=== PATIENT | female | born 1945 | race African-American/Black ===

== ENCOUNTER 2016-09-16 21:35 | Inpatient (IN) | payer MEDICARE ==
[~2016-09-16] VITALS: Ht 165.1 cm; Wt 129.7 kg
[~2016-09-16 21:35] MED LIST: ACET-2178 PO; ALBU2.5V13 INH; ALPR0.2582 PO; APIX2.5T PO; ASPI-1159 PO; AZIT500T5 PO; BENA20TA77 PO; CHOL20004 PO; CODE118S2 PO; CYAN10009 PO; DOXA8TAB2 PO; ESOM40CA PO; FLUT1DIS5 INH; FLUT1DIS6 IH; FURO-151 PO; HYDR-519 PO; HYDR-523 PO; LEVO75TA7 PO; MULT-1146 PO; NIFE60TA35 PO; TIOT18CA3 IH; TUSSL PO; WARF5TAB76 PO
[2016-09-16 22:06] VITALS: BP 132/58
[2016-09-16] MEDS ORDERED: CLONIDINE 0.1MG TABLET PO PRN (22:15)
[2016-09-16] MEDS ORDERED: MAGNESIUM HYDROXIDE 400MG/5ML 30ML UDC PO PRN (22:15)
[2016-09-16] MEDS ORDERED: NITROGLYCERIN 0.4MG TABLET SL SL PRN (22:15)
[2016-09-16] MEDS: SODIUM CHLORIDE 0.45% 1,000 ML IV SCH (23:07)
[2016-09-17 00:40] VITALS: BP 132/58
[2016-09-17] MEDS: ALPRAZOLAM 0.25 MG TABLET PO PRN ×2 (01:16→20:27)
[2016-09-17 06:18] LABS: CARBON DIOXIDE 35 mEq/L (21-32); CHLORIDE 100 mEq/L (98-107); PREALBUMIN 17.3 mg/dL (20.0-40.0)
[2016-09-17 06:21] LABS: HEMATOCRIT 33.1 % (36.0-48.0); HEMOGLOBIN 10.8 g/dL (12.0-16.0); MEAN CORPUSCULAR HEMOGLOBIN 23.2 pg (28.0-32.0); MEAN CORPUSCULAR VOLUME 70.7 fL (81.0-99.0); PLATELET 219 x1000/uL (130-400); RED BLOOD CELL COUNT 4.68 mill/uL (4.2-5.4); RED CELL DISTRIBUTION WIDTH 18.3 % (11.6-14.6)
[2016-09-17] MEDS: LEVOTHYROXINE SODIUM 75MCG TABLET PO SCH (06:54)
[2016-09-17] MEDS: PANTOPRAZOLE 40MG DR TABLET PO SCH (06:55)
[2016-09-17 08:00] VITALS: BP 170/84
[2016-09-17] MEDS: BENAZEPRIL 20MG TABLET PO SCH (08:31)
[2016-09-17] MEDS: NIFEDIPINE XL 60MG TAB PO SCH ×2 (08:32→17:11)
[2016-09-17] MEDS: FUROSEMIDE 40MG TABLET PO SCH ×2 (08:32→17:11)
[2016-09-17] MEDS: DOXAZOSIN MESYLATE 4MG TABLET PO SCH (08:32)
[2016-09-17] MEDS: ENOXAPARIN 40MG/0.4ML SYR SUBCUT SCH ×2 (08:33→20:26)
[2016-09-17] MEDS: LIDOCAINE 5% PATCH TOP SCH ×3 (08:34→14:53)
[2016-09-17] MEDS: SODIUM CHLORIDE 0.45% 1,000 ML IV SCH ×2 (08:36→18:40)
[2016-09-17] MEDS: DOCUSATE SODIUM 100MG CAPSULE PO SCH ×2 (08:37→17:00)
[2016-09-17] MEDS ORDERED: NIFEDIPINE XL 60MG TAB PO ONE (09:00)
[2016-09-17] MEDS: FLUTICASONE/VILANTEROL 200-25 BLST.W.DEV ORI SCH (10:03)
[2016-09-17] MEDS: UMECLIDINIUM BROMIDE 1 INH BLST.W.DEV IH SCH (10:03)
[2016-09-17] MEDS: HYDROCODONE/ACETAMINOPHEN 10/325MG TABLET PO PRN (13:39)
[2016-09-17 20:00] VITALS: BP 112/60
[2016-09-18] MEDS: HYDROCODONE/ACETAMINOPHEN 10/325MG TABLET PO PRN ×3 (01:06→17:51)
[2016-09-18] MEDS: SODIUM CHLORIDE 0.45% 1,000 ML IV SCH ×3 (03:22→20:54)
[2016-09-18] MEDS: LEVOTHYROXINE SODIUM 75MCG TABLET PO SCH (06:30)
[2016-09-18] MEDS: PANTOPRAZOLE 40MG DR TABLET PO SCH (06:30)
[2016-09-18 07:45] VITALS: BP 154/73
[2016-09-18] MEDS: DOCUSATE SODIUM 100MG CAPSULE PO SCH ×2 (09:00→16:47)
[2016-09-18] MEDS: BENAZEPRIL 20MG TABLET PO SCH (09:14)
[2016-09-18] MEDS: NIFEDIPINE XL 60MG TAB PO SCH ×2 (09:14→16:45)
[2016-09-18] MEDS: FUROSEMIDE 40MG TABLET PO SCH ×2 (09:15→16:45)
[2016-09-18] MEDS: ENOXAPARIN 40MG/0.4ML SYR SUBCUT SCH ×2 (09:16→20:54)
[2016-09-18] MEDS: DOXAZOSIN MESYLATE 4MG TABLET PO SCH (09:16)
[2016-09-18] MEDS: FLUTICASONE/VILANTEROL 200-25 BLST.W.DEV ORI SCH (09:17)
[2016-09-18] MEDS: UMECLIDINIUM BROMIDE 1 INH BLST.W.DEV IH SCH (09:17)
[2016-09-18] MEDS: LIDOCAINE 5% PATCH TOP SCH (09:18)
[2016-09-18] MEDS: ALPRAZOLAM 0.25 MG TABLET PO PRN (15:19)
[2016-09-18 18:32] LABS: CLARITY URINE CLEAR (CLEAR); COLOR URINE YELLOW (YELLOW); GLUCOSE URINE NEGATIVE (NEGATIVE); KETONES URINE NEGATIVE (NEGATIVE); LEUKOCYTE ESTERASE URINE NEGATIVE (NEGATIVE); NITRITE URINE NEGATIVE (NEGATIVE); OCCULT BLOOD URINE 2+ (NEGATIVE); PH URINE 7.5 (4.5-8.0); PROTEIN URINE NEGATIVE (NEGATIVE); SPECIFIC GRAVITY URINE 1.019 (1.005-1.030)
[2016-09-18 20:00] VITALS: BP 117/60
[2016-09-19] MEDS: ALPRAZOLAM 0.25 MG TABLET PO PRN ×2 (00:39→20:28)
[2016-09-19] MEDS: SODIUM CHLORIDE 0.45% 1,000 ML IV SCH (01:00)
[2016-09-19] MEDS: HYDROCODONE/ACETAMINOPHEN 10/325MG TABLET PO PRN ×3 (04:03→22:48)
[2016-09-19 05:38] LABS: BASOPHILS % 0.6 % (0.0-2.0); HEMATOCRIT. 33.1 % (36.0-48.0); HEMOGLOBIN. 11.2 g/dL (12.0-16.0); LYMPHOCYTES % 14.1 % (20.0-50.0); MEAN CORPUSCULAR HEMOGLOBIN 23.6 pg (28.0-32.0); MEAN CORPUSCULAR VOLUME 69.8 fL (81.0-99.0); MEAN PLATELET VOLUME 8.6 fl (7.4-10.4); MONOCYTES % 9.1 % (2.0-8.0); NEUTROPHILS % 72.2 % (40.0-76.0); PLATELET 231 x1000/uL (130-400); RED BLOOD CELL COUNT 4.74 mill/uL (4.2-5.4); RED CELL DISTRIBUTION WIDTH 18.5 % (11.6-14.6)
[2016-09-19 06:06] LABS: CARBON DIOXIDE 34 mEq/L (21-32); CHLORIDE 102 mEq/L (98-107); PHOSPHORUS 3.1 mg/dL (2.5-4.9); TOTAL IRON BINDING CAPACITY 230 ug/dL (250-450)
[2016-09-19] MEDS: LEVOTHYROXINE SODIUM 75MCG TABLET PO SCH (06:27)
[2016-09-19 07:24] LABS: CREATINE KINASE 9380 IU/L (26-192)
[2016-09-19 07:25] LABS: FERRITIN 77 ng/mL (10-291)
[2016-09-19 07:39] LABS: VITAMIN B12 SERUM > 2000 pg/mL (211-911)
[2016-09-19 08:00] VITALS: BP 137/67
[2016-09-19] MEDS: BENAZEPRIL 20MG TABLET PO SCH (10:54)
[2016-09-19] MEDS: FAMOTIDINE 20MG TABLET PO SCH ×2 (10:54→20:27)
[2016-09-19] MEDS: NIFEDIPINE XL 60MG TAB PO SCH ×2 (10:54→18:11)
[2016-09-19] MEDS: DOCUSATE SODIUM 100MG CAPSULE PO SCH ×2 (10:54→18:12)
[2016-09-19] MEDS: FUROSEMIDE 40MG TABLET PO SCH ×2 (10:54→18:12)
[2016-09-19] MEDS: FLUTICASONE/VILANTEROL 200-25 BLST.W.DEV ORI SCH (10:55)
[2016-09-19] MEDS: ENOXAPARIN 40MG/0.4ML SYR SUBCUT SCH ×2 (10:55→20:27)
[2016-09-19] MEDS: DOXAZOSIN MESYLATE 4MG TABLET PO SCH (10:55)
[2016-09-19] MEDS: UMECLIDINIUM BROMIDE 1 INH BLST.W.DEV IH SCH (10:56)
[2016-09-19] MEDS: LIDOCAINE 5% PATCH TOP SCH (10:57)
[2016-09-19 12:00] VITALS: BP 147/69
[2016-09-19 18:00] VITALS: BP 129/61
[2016-09-19] MEDS: FERROUS SULFATE 325MG TABLET PO SCH (18:11)
[2016-09-19 20:12] VITALS: BP 121/66
[2016-09-20] MEDS: LEVOTHYROXINE SODIUM 75MCG TABLET PO SCH (06:19)
[2016-09-20] MEDS: HYDROCODONE/ACETAMINOPHEN 10/325MG TABLET PO PRN ×3 (06:38→22:21)
[2016-09-20] MEDS: GUAIFENESIN 200MG/10ML SUGAR FREE UDC PO PRN (06:39)
[2016-09-20 08:00] VITALS: BP 136/70
[2016-09-20] MEDS: LIDOCAINE 5% PATCH TOP SCH ×2 (09:00→09:45)
[2016-09-20] MEDS: NIFEDIPINE XL 60MG TAB PO SCH ×2 (09:42→18:05)
[2016-09-20] MEDS: FUROSEMIDE 40MG TABLET PO SCH ×2 (09:42→18:05)
[2016-09-20] MEDS: DOCUSATE SODIUM 100MG CAPSULE PO SCH ×2 (09:42→17:00)
[2016-09-20] MEDS: FAMOTIDINE 20MG TABLET PO SCH ×2 (09:42→22:19)
[2016-09-20] MEDS: FERROUS SULFATE 325MG TABLET PO SCH ×3 (09:42→18:04)
[2016-09-20] MEDS: DOXAZOSIN MESYLATE 4MG TABLET PO SCH (09:43)
[2016-09-20] MEDS: ENOXAPARIN 40MG/0.4ML SYR SUBCUT SCH ×2 (09:43→22:21)
[2016-09-20] MEDS: BENAZEPRIL 20MG TABLET PO SCH (09:43)
[2016-09-20] MEDS: UMECLIDINIUM BROMIDE 1 INH BLST.W.DEV IH SCH (09:43)
[2016-09-20] MEDS: FLUTICASONE/VILANTEROL 200-25 BLST.W.DEV ORI SCH (09:44)
[2016-09-20 12:55] VITALS: BP 127/64
[2016-09-20 18:05] VITALS: BP 120/63
[2016-09-20 20:00] VITALS: BP 122/67
[2016-09-20] MEDS ORDERED: LIDOCAINE 5% PATCH TOP SCH (21:00)
[2016-09-21] MEDS: LEVOTHYROXINE SODIUM 75MCG TABLET PO SCH (06:03)
[2016-09-21 08:00] VITALS: BP 155/89
[2016-09-21 08:15] LABS: CREATINE KINASE 7427 IU/L (26-192)
[2016-09-21] MEDS: ENOXAPARIN 40MG/0.4ML SYR SUBCUT SCH ×2 (08:22→21:18)
[2016-09-21] MEDS: DOCUSATE SODIUM 100MG CAPSULE PO SCH ×2 (08:22→16:55)
[2016-09-21] MEDS: FAMOTIDINE 20MG TABLET PO SCH ×2 (08:23→21:16)
[2016-09-21] MEDS: FUROSEMIDE 40MG TABLET PO SCH ×2 (08:23→16:55)
[2016-09-21] MEDS: BENAZEPRIL 20MG TABLET PO SCH (08:23)
[2016-09-21] MEDS: NIFEDIPINE XL 60MG TAB PO SCH ×2 (08:23→16:55)
[2016-09-21] MEDS: FERROUS SULFATE 325MG TABLET PO SCH ×3 (08:23→16:55)
[2016-09-21] MEDS: DOXAZOSIN MESYLATE 4MG TABLET PO SCH (08:24)
[2016-09-21] MEDS: HYDROCODONE/ACETAMINOPHEN 10/325MG TABLET PO PRN ×2 (08:25→21:17)
[2016-09-21] MEDS: UMECLIDINIUM BROMIDE 1 INH BLST.W.DEV IH SCH (08:28)
[2016-09-21] MEDS: LIDOCAINE 5% PATCH TOP SCH (08:32)
[2016-09-21] MEDS: FLUTICASONE/VILANTEROL 200-25 BLST.W.DEV ORI SCH (08:32)
[2016-09-21] MEDS: ALPRAZOLAM 0.25 MG TABLET PO PRN (13:58)
[2016-09-21] MEDS ORDERED: ALPRAZOLAM 0.25 MG TABLET PO PRN (15:30)
[2016-09-21] MEDS ORDERED: HYDROCODONE/ACETAMINOPHEN 10/325MG TABLET PO PRN (15:30)
[2016-09-21] MEDS ORDERED: CLONIDINE 0.2MG TABLET PO PRN (16:45)
[2016-09-21] MEDS: GUAIFENESIN 200MG/10ML SUGAR FREE UDC PO PRN (18:16)
[2016-09-21 20:00] VITALS: BP 118/58
[2016-09-22] MEDS: ALPRAZOLAM 0.25 MG TABLET PO PRN ×3 (01:13→22:58)
[2016-09-22 06:02] LABS: BASOPHILS % 0.8 % (0.0-2.0); EOSINOPHILS % 5.4 % (0.0-5.0); HEMOGLOBIN. 11.2 g/dL (12.0-16.0); LYMPHOCYTES % 19.9 % (20.0-50.0); MEAN CORPUSCULAR HEMOGLOBIN 23.4 pg (28.0-32.0); MEAN PLATELET VOLUME 8.1 fl (7.4-10.4); MONOCYTES % 12.3 % (2.0-8.0); NEUTROPHILS % 61.6 % (40.0-76.0); PLATELET 237 x1000/uL (130-400); RED BLOOD CELL COUNT 4.79 mill/uL (4.2-5.4)
[2016-09-22] MEDS: LEVOTHYROXINE SODIUM 75MCG TABLET PO SCH (06:29)
[2016-09-22 06:35] LABS: CARBON DIOXIDE 33 mEq/L (21-32); CHLORIDE 106 mEq/L (98-107)
[2016-09-22 07:24] LABS: CREATINE KINASE 5686 IU/L (26-192)
[2016-09-22 08:00] VITALS: BP 145/73
[2016-09-22] MEDS: UMECLIDINIUM BROMIDE 1 INH BLST.W.DEV IH SCH (09:19)
[2016-09-22] MEDS: FLUTICASONE/VILANTEROL 200-25 BLST.W.DEV ORI SCH (09:19)
[2016-09-22] MEDS: DOCUSATE SODIUM 100MG CAPSULE PO SCH ×2 (09:35→16:32)
[2016-09-22] MEDS: DOXAZOSIN MESYLATE 4MG TABLET PO SCH (09:35)
[2016-09-22] MEDS: FERROUS SULFATE 325MG TABLET PO SCH ×3 (09:36→16:32)
[2016-09-22] MEDS: FUROSEMIDE 40MG TABLET PO SCH ×2 (09:36→16:32)
[2016-09-22] MEDS: BENAZEPRIL 20MG TABLET PO SCH (09:37)
[2016-09-22] MEDS: FAMOTIDINE 20MG TABLET PO SCH ×2 (09:37→20:41)
[2016-09-22] MEDS: NIFEDIPINE XL 60MG TAB PO SCH ×2 (09:38→16:45)
[2016-09-22] MEDS: ENOXAPARIN 40MG/0.4ML SYR SUBCUT SCH ×2 (09:39→20:41)
[2016-09-22] MEDS: LIDOCAINE 5% PATCH TOP SCH (09:40)
[2016-09-22] MEDS: GUAIFENESIN 200MG/10ML SUGAR FREE UDC PO PRN ×2 (12:15→21:07)
[2016-09-22] MEDS: HYDROCODONE/ACETAMINOPHEN 10/325MG TABLET PO PRN (14:56)
[2016-09-22 20:00] VITALS: BP 130/65
[2016-09-23] MEDS: GUAIFENESIN 200MG/10ML SUGAR FREE UDC PO PRN (04:25)
[2016-09-23] MEDS: HYDROCODONE/ACETAMINOPHEN 10/325MG TABLET PO PRN ×2 (04:36→15:06)
[2016-09-23] MEDS: LEVOTHYROXINE SODIUM 75MCG TABLET PO SCH (06:13)
[2016-09-23 07:46] LABS: CREATINE KINASE 4669 IU/L (26-192)
[2016-09-23 08:00] VITALS: BP 141/73
[2016-09-23] MEDS: UMECLIDINIUM BROMIDE 1 INH BLST.W.DEV IH SCH (08:16)
[2016-09-23] MEDS: ENOXAPARIN 40MG/0.4ML SYR SUBCUT SCH ×2 (08:17→20:35)
[2016-09-23] MEDS: FLUTICASONE/VILANTEROL 200-25 BLST.W.DEV ORI SCH (08:17)
[2016-09-23] MEDS: LIDOCAINE 5% PATCH TOP SCH (08:18)
[2016-09-23] MEDS: DOCUSATE SODIUM 100MG CAPSULE PO SCH ×2 (08:19→17:47)
[2016-09-23] MEDS: BENAZEPRIL 20MG TABLET PO SCH (08:19)
[2016-09-23] MEDS: FAMOTIDINE 20MG TABLET PO SCH ×2 (08:19→20:35)
[2016-09-23] MEDS: FUROSEMIDE 40MG TABLET PO SCH ×2 (08:19→17:47)
[2016-09-23] MEDS: FERROUS SULFATE 325MG TABLET PO SCH ×3 (08:19→17:47)
[2016-09-23] MEDS: NIFEDIPINE XL 60MG TAB PO SCH ×2 (08:19→17:47)
[2016-09-23] MEDS: DOXAZOSIN MESYLATE 4MG TABLET PO SCH (08:20)
[2016-09-23] MEDS: GUAIFENESIN-DM 200MG-20MG/10ML UDC PO PRN (15:06)
[2016-09-23 20:00] VITALS: BP 133/59
[2016-09-23] MEDS: ALPRAZOLAM 0.25 MG TABLET PO PRN (22:32)
[2016-09-24] MEDS: HYDROCODONE/ACETAMINOPHEN 10/325MG TABLET PO PRN ×2 (03:25→17:54)
[2016-09-24] MEDS: GUAIFENESIN 200MG/10ML SUGAR FREE UDC PO PRN (06:10)
[2016-09-24] MEDS: LEVOTHYROXINE SODIUM 75MCG TABLET PO SCH (06:10)
[2016-09-24 06:38] LABS: BASOPHILS % 0.4 % (0.0-2.0); EOSINOPHILS % 5.7 % (0.0-5.0); HEMATOCRIT. 34.5 % (36.0-48.0); HEMOGLOBIN. 11.4 g/dL (12.0-16.0); LYMPHOCYTES % 18.6 % (20.0-50.0); MEAN CORPUSCULAR HEMOGLOBIN 23.2 pg (28.0-32.0); MEAN CORPUSCULAR VOLUME 70.6 fL (81.0-99.0); MEAN PLATELET VOLUME 8.7 fl (7.4-10.4); MONOCYTES % 11.3 % (2.0-8.0); PLATELET 231 x1000/uL (130-400); RED BLOOD CELL COUNT 4.89 mill/uL (4.2-5.4); RED CELL DISTRIBUTION WIDTH 19.6 % (11.6-14.6)
[2016-09-24 08:03] VITALS: BP 123/64
[2016-09-24 08:09] LABS: CARBON DIOXIDE 36 mEq/L (21-32); CHLORIDE 103 mEq/L (98-107)
[2016-09-24 08:32] LABS: CREATINE KINASE 4442 IU/L (26-192)
[2016-09-24] MEDS: LIDOCAINE 5% PATCH TOP SCH ×2 (09:00→13:23)
[2016-09-24] MEDS: DOCUSATE SODIUM 100MG CAPSULE PO SCH ×2 (10:33→17:46)
[2016-09-24] MEDS: FAMOTIDINE 20MG TABLET PO SCH ×2 (10:33→20:16)
[2016-09-24] MEDS: BENAZEPRIL 20MG TABLET PO SCH (10:33)
[2016-09-24] MEDS: FERROUS SULFATE 325MG TABLET PO SCH ×3 (10:33→17:46)
[2016-09-24] MEDS: NIFEDIPINE XL 60MG TAB PO SCH ×2 (10:33→17:47)
[2016-09-24] MEDS: FUROSEMIDE 40MG TABLET PO SCH ×2 (10:33→17:47)
[2016-09-24] MEDS: DOXAZOSIN MESYLATE 4MG TABLET PO SCH (10:34)
[2016-09-24] MEDS: ENOXAPARIN 40MG/0.4ML SYR SUBCUT SCH ×2 (10:34→20:16)
[2016-09-24] MEDS: UMECLIDINIUM BROMIDE 1 INH BLST.W.DEV IH SCH (10:35)
[2016-09-24] MEDS: FLUTICASONE/VILANTEROL 200-25 BLST.W.DEV ORI SCH (10:35)
[2016-09-24 17:11] LABS: 25-HYDROXY VITAMIN D3 19 ng/mL (.)
[2016-09-24 17:35] VITALS: BP 129/64
[2016-09-24 20:22] VITALS: BP 122/63
[2016-09-25] MEDS: HYDROCODONE/ACETAMINOPHEN 10/325MG TABLET PO PRN ×2 (00:40→06:42)
[2016-09-25] MEDS: LEVOTHYROXINE SODIUM 75MCG TABLET PO SCH (06:12)
[2016-09-25 08:00] VITALS: BP 136/68
[2016-09-25] MEDS: FERROUS SULFATE 325MG TABLET PO SCH ×3 (10:42→17:31)
[2016-09-25] MEDS: FAMOTIDINE 20MG TABLET PO SCH ×2 (10:42→20:43)
[2016-09-25] MEDS: FUROSEMIDE 40MG TABLET PO SCH ×2 (10:42→17:32)
[2016-09-25] MEDS: DOCUSATE SODIUM 100MG CAPSULE PO SCH ×2 (10:42→17:31)
[2016-09-25] MEDS: BENAZEPRIL 20MG TABLET PO SCH (10:42)
[2016-09-25] MEDS: DOXAZOSIN MESYLATE 4MG TABLET PO SCH (10:43)
[2016-09-25] MEDS: NIFEDIPINE XL 60MG TAB PO SCH ×2 (10:43→17:32)
[2016-09-25] MEDS: ENOXAPARIN 40MG/0.4ML SYR SUBCUT SCH ×2 (10:44→20:43)
[2016-09-25] MEDS: UMECLIDINIUM BROMIDE 1 INH BLST.W.DEV IH SCH (10:50)
[2016-09-25] MEDS: FLUTICASONE/VILANTEROL 200-25 BLST.W.DEV ORI SCH (10:51)
[2016-09-25] MEDS: LIDOCAINE 5% PATCH TOP SCH (13:44)
[2016-09-25] MEDS: ALPRAZOLAM 0.25 MG TABLET PO PRN (17:36)
[2016-09-25 20:00] VITALS: BP 121/66
[2016-09-26] MEDS: LEVOTHYROXINE SODIUM 75MCG TABLET PO SCH (06:18)
[2016-09-26] MEDS: GUAIFENESIN-DM 200MG-20MG/10ML UDC PO PRN (06:41)
[2016-09-26 08:07] VITALS: BP 132/70
[2016-09-26] MEDS: FUROSEMIDE 40MG TABLET PO SCH (08:46)
[2016-09-26] MEDS: FERROUS SULFATE 325MG TABLET PO SCH ×2 (08:46→12:15)
[2016-09-26] MEDS: FAMOTIDINE 20MG TABLET PO SCH (08:46)
[2016-09-26] MEDS: BENAZEPRIL 20MG TABLET PO SCH (08:47)
[2016-09-26] MEDS: NIFEDIPINE XL 60MG TAB PO SCH (08:47)
[2016-09-26] MEDS: DOXAZOSIN MESYLATE 4MG TABLET PO SCH (08:48)
[2016-09-26] MEDS: UMECLIDINIUM BROMIDE 1 INH BLST.W.DEV IH SCH (08:48)
[2016-09-26] MEDS: FLUTICASONE/VILANTEROL 200-25 BLST.W.DEV ORI SCH (08:48)
[2016-09-26] MEDS: ENOXAPARIN 40MG/0.4ML SYR SUBCUT SCH (08:49)
[2016-09-26] MEDS: LIDOCAINE 5% PATCH TOP SCH (08:49)
[2016-09-26] MEDS: DOCUSATE SODIUM 100MG CAPSULE PO SCH (08:50)
[2016-09-26] MEDS: HYDROCODONE/ACETAMINOPHEN 10/325MG TABLET PO PRN (09:11)
[2016-09-26] MEDS: ALPRAZOLAM 0.25 MG TABLET PO PRN (12:15)
[2016-09-26 12:42] VITALS: BP 132/70
== END 2016-09-26 13:30 | disposition home health service (06) | DRG 545 ==
PROVIDERS: ADMIT Physical Medicine & Rehabilitation Spinal Cord Injury Medicine; ATTEND Internal Medicine Pulmonary Disease
DX: M33.20 Polymyositis, organ involvement unspecified (principal); I26.99 Other pulmonary embolism without acute cor pulmonale; K72.00 Acute and subacute hepatic failure without coma; Z68.42 Body mass index [BMI] 45.0-49.9, adult; I47.2 Ventricular tachycardia; I82.C12 Acute embolism and thrombosis of left internal jugular vein; D32.9 Benign neoplasm of meninges, unspecified; D50.9 Iron deficiency anemia, unspecified; D69.6 Thrombocytopenia, unspecified; E03.9 Hypothyroidism, unspecified; E11.9 Type 2 diabetes mellitus without complications; E66.01 Morbid (severe) obesity due to excess calories; E78.00 Pure hypercholesterolemia, unspecified; E78.5 Hyperlipidemia, unspecified; G47.33 Obstructive sleep apnea (adult) (pediatric); I10 Essential (primary) hypertension; I25.10 Atherosclerotic heart disease of native coronary artery without angina pectoris; I48.0 Paroxysmal atrial fibrillation; J42 Unspecified chronic bronchitis; J45.909 Unspecified asthma, uncomplicated; F06.31 Mood disorder due to known physiological condition with depressive features; K21.9 Gastro-esophageal reflux disease without esophagitis; K57.90 Diverticulosis of intestine, part unspecified, without perforation or abscess without bleeding; M06.9 Rheumatoid arthritis, unspecified; M19.90 Unspecified osteoarthritis, unspecified site; Z96.653 Presence of artificial knee joint, bilateral; R26.9 Unspecified abnormalities of gait and mobility; Z82.49 Family history of ischemic heart disease and other diseases of the circulatory system; Z85.42 Personal history of malignant neoplasm of other parts of uterus; Z86.711 Personal history of pulmonary embolism; Z86.718 Personal history of other venous thrombosis and embolism; Z92.21 Personal history of antineoplastic chemotherapy; Z95.1 Presence of aortocoronary bypass graft; Z90.710 Acquired absence of both cervix and uterus; I25.2 Old myocardial infarction
CPT/HCPCS: 36415; 80048; 80053; 80061; 80076; 81001; 82270; 82306; 82550; 82607; 82728; 82746; 83036; 83540; 83550; 83735; 84100; 84134; 84443; 84630; 85025; 85027; 87086; 93970; 94660; 97110; 97116; 97162; 97167; 97530; 97535; A6261; C1893; J1650

== ENCOUNTER → 2017-05-14 | Outpatient (CLI) | payer MEDICARE, BC ==
[~2017-05-14] MED LIST changes: -ALBU2.5V13 INH; +ALPR0.25 PO; -ALPR0.2582 PO; -AZIT500T5 PO; +BENA40TA3 PO; -CHOL20004 PO; +COD1CAPS7 PO; -CODE118S2 PO; -CYAN10009 PO; -ESOM40CA PO; +FAMO-135 PO; +FERR325T6 PO; +FURO80TA3 PO; -HYDR-523 PO; -TUSSL PO; +VITA1CAP11 PO; -WARF5TAB76 PO
== END | disposition home or self-care (01) ==
LOC: CT 13:24
PROVIDERS: ATTEND Internal Medicine Pulmonary Disease
DX: E04.9 Nontoxic goiter, unspecified (principal)
CPT/HCPCS: 71250

== ENCOUNTER 2017-05-17 06:42 | Inpatient (IN) | payer BC, MEDICARE ==
[~2017-05-17] VITALS: Ht 165.1 cm; Wt 131.1 kg
[~2017-05-17 06:42] MED LIST changes: -BENA40TA3 PO; -COD1CAPS7 PO; -FAMO-135 PO; -FERR325T6 PO; -FURO80TA3 PO; -VITA1CAP11 PO
[2017-05-17] MEDS ORDERED: NITROGLYCERIN OINT 1GM/INCH UDPKT TD STA (07:05)
[2017-05-17 07:58] LABS: EOSINOPHILS % 3.3 % (0.0-5.0); HEMATOCRIT. 34.9 % (36.0-48.0); HEMOGLOBIN. 11.3 g/dL (12.0-16.0); LYMPHOCYTES % 14.4 % (20.0-50.0); MEAN CORPUSCULAR HEMOGLOBIN 23.7 pg (28.0-32.0); MEAN CORPUSCULAR VOLUME 72.8 fL (81.0-99.0); MEAN PLATELET VOLUME 8.8 fl (7.4-10.4); MONOCYTES % 9.5 % (2.0-8.0); NEUTROPHILS % 71.8 % (40.0-76.0); PLATELET 205 x1000/uL (130-400); RED BLOOD CELL COUNT 4.79 mill/uL (4.2-5.4); RED CELL DISTRIBUTION WIDTH 18.7 % (11.6-14.6)
[2017-05-17 08:01] LABS: CHLORIDE 111 mEq/L (98-107); D-DIMER 0.57 mg/L FEU (<0.50); PROTHROMBIN TIME 10.7 sec (9.4-11.6)
[2017-05-17 09:07] LABS: TROPONIN I < 0.02 ng/mL (0.00-0.04)
[2017-05-17] MEDS ORDERED: IOHEXOL-350 100 ML BOTTLE ONE (09:30)
[2017-05-17] MEDS: HYDROCODONE/ACETAMINOPHEN 5/325MG TABLET PO PRN (13:25)
[2017-05-17] MEDS ORDERED: ACETAMINOPHEN 325MG TABLET PO PRN (17:45)
[2017-05-17] MEDS ORDERED: HYDROCODONE/ACETAMINOPHEN 10/325MG TABLET PO PRN (17:45)
[2017-05-17] MEDS ORDERED: ALBUTEROL (0.083%) 2.5MG/3ML NEB HHN PRN (17:45)
[2017-05-17] MEDS ORDERED: ALPRAZOLAM 0.25 MG TABLET PO PRN (17:45)
[2017-05-17 18:00] VITALS: BP 138/60
[2017-05-17] MEDS ORDERED: LEVOTHYROXINE SODIUM 75MCG TABLET PO NR (18:15)
[2017-05-17] MEDS ORDERED: VITA1CAP11 PO (18:31)
[2017-05-17] MEDS ORDERED: FERR325T6 PO (18:31)
[2017-05-17] MEDS ORDERED: FAMO-135 PO (18:31)
[2017-05-17] MEDS ORDERED: BENA40TA3 PO (18:31)
[2017-05-17] MEDS ORDERED: COD1CAPS7 PO (18:31)
[2017-05-17] MEDS ORDERED: FURO80TA3 PO (18:31)
[2017-05-17] MEDS: NIFEDIPINE XL 60MG TAB PO SCH (18:36)
[2017-05-17] MEDS: BENAZEPRIL 20MG TABLET PO SCH (18:37)
[2017-05-17] MEDS: FUROSEMIDE 80MG TABLET PO SCH (18:37)
[2017-05-17 18:47] LABS: T4 FREE 1.09 ng/dL (0.76-1.46)
[2017-05-17] MEDS ORDERED: FLUTICASONE/VILANTEROL 200-25 BLST.W.DEV ORI SCH (20:00)
[2017-05-17] MEDS ORDERED: UMECLIDINIUM BROMIDE 1 INH BLST.W.DEV IH SCH (20:00)
[2017-05-17 20:05] VITALS: BP 136/65
[2017-05-17] MEDS: FAMOTIDINE 20MG TABLET PO SCH (20:27)
[2017-05-17] MEDS: ENOXAPARIN 30MG/0.3ML SYR SUBCUT SCH (20:29)
[2017-05-17 20:43] VITALS: BP 136/65
[2017-05-18] VITALS (7 sets, daily range): BP systolic 98–157; BP diastolic 53–87
[2017-05-18 01:09] LABS: CREATINE KINASE 93 IU/L (26-192); CREATINE KINASE MB FRACTION 0.7 ng/mL (0.5-3.6); TROPONIN I < 0.02 ng/mL (0.00-0.04)
[2017-05-18] MEDS: FUROSEMIDE 80MG TABLET PO SCH ×2 (06:36→16:53)
[2017-05-18] MEDS: FERROUS SULFATE 325MG TABLET PO SCH ×3 (07:34→16:53)
[2017-05-18 07:53] LABS: CREATINE KINASE MB FRACTION 0.6 ng/mL (0.5-3.6); TROPONIN I 0.04 ng/mL (0.00-0.04)
[2017-05-18] MEDS: NIFEDIPINE XL 60MG TAB PO SCH ×2 (08:20→16:53)
[2017-05-18] MEDS: FAMOTIDINE 20MG TABLET PO SCH (08:20)
[2017-05-18] MEDS: BENAZEPRIL 20MG TABLET PO SCH (08:20)
[2017-05-18] MEDS: ENOXAPARIN 30MG/0.3ML SYR SUBCUT SCH (08:38)
[2017-05-18] MEDS ORDERED: LIDOCAINE HCL/PF 1% 10 MG/ML 5ML VIAL ONE (13:09)
[2017-05-18] MEDS ORDERED: REGADENOSON 0.4 MG/5 ML IV NR (14:00)
[2017-05-18] MEDS ORDERED: REGADENOSON 0.4 MG/5 ML IV ONE (14:38)
[2017-05-18] MEDS: HYDROCODONE/ACETAMINOPHEN 5/325MG TABLET PO PRN (16:54)
== END 2017-05-18 21:20 | disposition home or self-care (01) | DRG 880 ==
LOC: ER 06:52 → 6WST 09:52 → EDBEDREQ 09:54 → ENRESERV 14:27
PROVIDERS: ADMIT Internal Medicine Pulmonary Disease; ATTEND Internal Medicine Pulmonary Disease
PROC: 02HV33Z Insertion of Infusion Device into Superior Vena Cava, Percutaneous Approach (ICD-10-PCS; principal; 2017-05-18)
PROC: B5181ZA Fluoroscopy of Superior Vena Cava using Low Osmolar Contrast, Guidance (ICD-10-PCS; 2017-05-18)
DX: F41.9 Anxiety disorder, unspecified (principal); I27.20 Pulmonary hypertension, unspecified; I11.0 Hypertensive heart disease with heart failure; I50.9 Heart failure, unspecified; I69.351 Hemiplegia and hemiparesis following cerebral infarction affecting right dominant side; Z68.42 Body mass index [BMI] 45.0-49.9, adult; E03.9 Hypothyroidism, unspecified; E66.9 Obesity, unspecified; E78.5 Hyperlipidemia, unspecified; J44.9 Chronic obstructive pulmonary disease, unspecified; K21.9 Gastro-esophageal reflux disease without esophagitis; M19.90 Unspecified osteoarthritis, unspecified site; Z96.653 Presence of artificial knee joint, bilateral; G47.33 Obstructive sleep apnea (adult) (pediatric); N63.10 Unspecified lump in the right breast, unspecified quadrant; Z82.49 Family history of ischemic heart disease and other diseases of the circulatory system; Z85.42 Personal history of malignant neoplasm of other parts of uterus; Z90.710 Acquired absence of both cervix and uterus; Z79.899 Other long term (current) drug therapy; Z79.82 Long term (current) use of aspirin; Z88.6 Allergy status to analgesic agent
CPT/HCPCS: 36415; 36569; 71045; 71250; 71275; 76937; 77001; 78452; 80053; 82550; 82553; 83690; 83880; 84439; 84481; 84484; 85025; 85379; 85610; 85730; 93005; 93017; 93970; 94640; 99285; A9500; C1725; C1769; J1650; J2785; J3490; J7050; Q9967

== ENCOUNTER → 2017-05-25 | Outpatient (CLI) | payer MEDICARE ==
[~2017-05-25] MED LIST changes: -BENA20TA77 PO; +BENA40TA3 PO; +COD1CAPS7 PO; +FAMO-135 PO; +FERR325T6 PO; -FURO-151 PO; +FURO80TA3 PO; +VITA1CAP11 PO
== END | disposition home or self-care (01) ==
LOC: MAMMO 09:48
PROVIDERS: ATTEND Surgery
DX: R92.1 Mammographic calcification found on diagnostic imaging of breast (principal)
CPT/HCPCS: 77065

== ENCOUNTER 2017-07-23 17:52 | Inpatient (IN) | payer MEDICARE ==
[~2017-07-23] VITALS: Ht 165.1 cm; Wt 138.8 kg
[2017-07-23 19:14] LABS: BASOPHILS % 0.8 % (0.0-2.0); EOSINOPHILS % 2.3 % (0.0-5.0); HEMATOCRIT. 37.3 % (36.0-48.0); HEMOGLOBIN. 12.3 g/dL (12.0-16.0); LYMPHOCYTES % 16.5 % (20.0-50.0); MEAN CORPUSCULAR HEMOGLOBIN 24.3 pg (28.0-32.0); MEAN CORPUSCULAR VOLUME 73.8 fL (81.0-99.0); MEAN PLATELET VOLUME 8.6 fl (7.4-10.4); MONOCYTES % 8.6 % (2.0-8.0); NEUTROPHILS % 71.8 % (40.0-76.0); PLATELET 197 x1000/uL (130-400); RED BLOOD CELL COUNT 5.05 mill/uL (4.2-5.4); RED CELL DISTRIBUTION WIDTH 18.1 % (11.6-14.6)
[2017-07-23 19:15] LABS: CHLORIDE 108 mEq/L (98-107)
[2017-07-23 19:16] LABS: PROTHROMBIN TIME 10.5 sec (9.4-11.6)
[2017-07-23] MEDS ORDERED: HEPARIN 25,000 UNITS PREMIX 500 ML IV ONE (22:00)
[2017-07-23] MEDS ORDERED: HEPARIN 5000 UNITS/ML VIAL IV ONE (22:00)
[2017-07-23 23:45] VITALS: BP 167/68
[2017-07-24] VITALS: BP 167/68
[2017-07-24] MEDS ORDERED: ALPRAZOLAM 0.25 MG TABLET PO PRN (02:00)
[2017-07-24] MEDS ORDERED: ALBUTEROL (0.083%) 2.5MG/3ML NEB HHN PRN (02:30)
[2017-07-24] MEDS ORDERED: GUAIFENESIN-DM 200MG-20MG/10ML UDC PO PRN (02:45)
[2017-07-24 04:15] VITALS: BP 135/56
[2017-07-24] MEDS: FUROSEMIDE 80MG TABLET PO SCH ×2 (06:23→18:36)
[2017-07-24] MEDS: LEVOTHYROXINE SODIUM 75MCG TABLET PO SCH (06:23)
[2017-07-24] MEDS: ENOXAPARIN 150MG/ML SYR SUBCUT SCH ×2 (06:23→18:39)
[2017-07-24] MEDS: HYDROCODONE/ACETAMINOPHEN 10/325MG TABLET PO PRN ×3 (06:30→21:06)
[2017-07-24 08:00] VITALS: BP 155/73
[2017-07-24] MEDS: BENAZEPRIL 20MG TABLET PO SCH (10:56)
[2017-07-24] MEDS: FAMOTIDINE 20MG TABLET PO SCH ×2 (10:57→20:44)
[2017-07-24] MEDS: NIFEDIPINE XL 60MG TAB PO SCH ×2 (10:57→20:44)
[2017-07-24] MEDS: FERROUS SULFATE 325MG TABLET PO SCH ×3 (11:00→18:39)
[2017-07-24 12:00] VITALS: BP 158/72
[2017-07-24] MEDS: FLUTICASONE/VILANTEROL 200-25 BLST.W.DEV ORI SCH (13:06)
[2017-07-24] MEDS: UMECLIDINIUM BROMIDE 1 INH BLST.W.DEV IH SCH (15:56)
[2017-07-24 16:00] VITALS: BP 162/67
[2017-07-24 20:36] VITALS: BP 148/68
[2017-07-24] MEDS: DOXAZOSIN MESYLATE 4MG TABLET PO SCH (20:44)
[2017-07-25 00:51] VITALS: BP 155/65
[2017-07-25 04:00] VITALS: BP 129/54
[2017-07-25] MEDS: FUROSEMIDE 80MG TABLET PO SCH ×2 (06:24→17:12)
[2017-07-25] MEDS: LEVOTHYROXINE SODIUM 75MCG TABLET PO SCH (06:24)
[2017-07-25] MEDS: ENOXAPARIN 150MG/ML SYR SUBCUT SCH ×2 (06:25→17:12)
[2017-07-25 07:42] LABS: BASOPHILS % 0.6 % (0.0-2.0); EOSINOPHILS % 3.2 % (0.0-5.0); HEMATOCRIT. 34.4 % (36.0-48.0); HEMOGLOBIN. 11.4 g/dL (12.0-16.0); LYMPHOCYTES % 20.1 % (20.0-50.0); MEAN CORPUSCULAR HEMOGLOBIN 24.3 pg (28.0-32.0); MEAN CORPUSCULAR VOLUME 73.1 fL (81.0-99.0); MEAN PLATELET VOLUME 8.7 fl (7.4-10.4); MONOCYTES % 11.5 % (2.0-8.0); NEUTROPHILS % 64.6 % (40.0-76.0); PLATELET 193 x1000/uL (130-400); RED BLOOD CELL COUNT 4.71 mill/uL (4.2-5.4); RED CELL DISTRIBUTION WIDTH 17.7 % (11.6-14.6)
[2017-07-25 07:59] LABS: CHLORIDE 107 mEq/L (98-107)
[2017-07-25 08:03] VITALS: BP 124/56
[2017-07-25] MEDS: FERROUS SULFATE 325MG TABLET PO SCH ×3 (08:37→17:12)
[2017-07-25] MEDS: FAMOTIDINE 20MG TABLET PO SCH ×2 (08:40→21:40)
[2017-07-25] MEDS: BENAZEPRIL 20MG TABLET PO SCH (08:40)
[2017-07-25] MEDS: NIFEDIPINE XL 60MG TAB PO SCH ×2 (08:40→21:41)
[2017-07-25] MEDS: HYDROCODONE/ACETAMINOPHEN 10/325MG TABLET PO PRN ×2 (08:42→21:40)
[2017-07-25] MEDS: FLUTICASONE/VILANTEROL 200-25 BLST.W.DEV ORI SCH (08:46)
[2017-07-25 11:25] VITALS: BP 120/59
[2017-07-25] MEDS: UMECLIDINIUM BROMIDE 1 INH BLST.W.DEV IH SCH (12:35)
[2017-07-25 16:07] VITALS: BP 138/61
[2017-07-25 20:00] VITALS: BP 135/63
[2017-07-25] MEDS: DOXAZOSIN MESYLATE 4MG TABLET PO SCH (21:40)
[2017-07-26] VITALS: BP 127/52
[2017-07-26 04:00] VITALS: BP 130/59
[2017-07-26] MEDS: FUROSEMIDE 80MG TABLET PO SCH (06:17)
[2017-07-26] MEDS: HYDROCODONE/ACETAMINOPHEN 10/325MG TABLET PO PRN ×2 (06:17→11:47)
[2017-07-26] MEDS: ENOXAPARIN 150MG/ML SYR SUBCUT SCH (06:20)
[2017-07-26 08:01] VITALS: BP 127/72
[2017-07-26] MEDS: FERROUS SULFATE 325MG TABLET PO SCH ×2 (10:34→12:48)
[2017-07-26] MEDS: NIFEDIPINE XL 60MG TAB PO SCH (10:35)
[2017-07-26] MEDS: BENAZEPRIL 20MG TABLET PO SCH (10:36)
[2017-07-26] MEDS: FAMOTIDINE 20MG TABLET PO SCH (10:36)
[2017-07-26] MEDS: LEVOTHYROXINE SODIUM 75MCG TABLET PO SCH (10:37)
[2017-07-26] MEDS: FLUTICASONE/VILANTEROL 200-25 BLST.W.DEV ORI SCH (10:38)
[2017-07-26 12:00] VITALS: BP 120/70
[2017-07-26 14:08] VITALS: BP 125/80
== END 2017-07-26 15:51 | disposition home or self-care (01) | DRG 300 ==
LOC: ER 19:09 → 6WST 21:53 → ENRESERV 22:15 → 6WST 23:40
PROVIDERS: ADMIT Internal Medicine Pulmonary Disease; ATTEND Internal Medicine Pulmonary Disease
DX: I82.622 Acute embolism and thrombosis of deep veins of left upper extremity (principal); D68.59 Other primary thrombophilia; I27.20 Pulmonary hypertension, unspecified; E66.01 Morbid (severe) obesity due to excess calories; Z68.43 Body mass index [BMI] 50.0-59.9, adult; J44.9 Chronic obstructive pulmonary disease, unspecified; I82.B12 Acute embolism and thrombosis of left subclavian vein; I82.619 Acute embolism and thrombosis of superficial veins of unspecified upper extremity; G47.30 Sleep apnea, unspecified; E03.9 Hypothyroidism, unspecified; E78.5 Hyperlipidemia, unspecified; I10 Essential (primary) hypertension; F32.9 Major depressive disorder, single episode, unspecified; F41.9 Anxiety disorder, unspecified; G89.29 Other chronic pain; M54.5 Low back pain; J30.1 Allergic rhinitis due to pollen; Z96.653 Presence of artificial knee joint, bilateral; I25.10 Atherosclerotic heart disease of native coronary artery without angina pectoris; K21.9 Gastro-esophageal reflux disease without esophagitis; M19.90 Unspecified osteoarthritis, unspecified site; Z79.01 Long term (current) use of anticoagulants; Z85.42 Personal history of malignant neoplasm of other parts of uterus; Z86.711 Personal history of pulmonary embolism; Z90.710 Acquired absence of both cervix and uterus; Z88.8 Allergy status to other drugs, medicaments and biological substances; Z79.82 Long term (current) use of aspirin; Z79.899 Other long term (current) drug therapy; Z90.721 Acquired absence of ovaries, unilateral
CPT/HCPCS: 36415; 71045; 78582; 80048; 80053; 83690; 84484; 85025; 85610; 85730; 93005; 93971; A9558; J1644; J1650

== ENCOUNTER 2017-08-31 12:42 | Emergency (ER) | payer MEDICARE ==
[~2017-08-31] VITALS: Ht 167.6 cm; Wt 130.0 kg
[~2017-08-31 12:42] MED LIST changes: -APIX2.5T PO; +APIX5TAB PO
[2017-08-31] MEDS ORDERED: SODIUM CHLORIDE 0.9% 1,000 ML IV ONE (13:06)
[2017-08-31 14:35] LABS: BASOPHILS % 0.7 % (0.0-2.0); EOSINOPHILS % 0.5 % (0.0-5.0); HEMATOCRIT. 36.9 % (36.0-48.0); HEMOGLOBIN. 12.4 g/dL (12.0-16.0); LYMPHOCYTES % 13.7 % (20.0-50.0); MEAN CORPUSCULAR HEMOGLOBIN 24.8 pg (28.0-32.0); MEAN CORPUSCULAR VOLUME 74.1 fL (81.0-99.0); MEAN PLATELET VOLUME 8.5 fl (7.4-10.4); MONOCYTES % 8.9 % (2.0-8.0); NEUTROPHILS % 76.2 % (40.0-76.0); PLATELET 220 x1000/uL (130-400); RED BLOOD CELL COUNT 4.99 mill/uL (4.2-5.4); RED CELL DISTRIBUTION WIDTH 17.2 % (11.6-14.6)
[2017-08-31 14:41] LABS: CHLORIDE 105 mEq/L (98-107)
[2017-08-31 14:43] LABS: INR 1.2
[2017-08-31 16:13] VITALS: BP 91/53
[2017-08-31] MEDS ORDERED: POTASSIUM CHLORIDE 20MEQ TABLET SR PO ONE (16:30)
== END 2017-08-31 16:43 | disposition home or self-care (01) ==
LOC: ER 13:14 → CANBEDREQ 17:48
DX: E87.6 Hypokalemia (principal); N28.9 Disorder of kidney and ureter, unspecified; R55 Syncope and collapse; J45.909 Unspecified asthma, uncomplicated; I10 Essential (primary) hypertension; Z86.73 Personal history of transient ischemic attack (TIA), and cerebral infarction without residual deficits; Z88.5 Allergy status to narcotic agent
CPT/HCPCS: 36415; 70450; 71045; 80053; 85025; 85610; 93005; 96360; 99285; J7030

== ENCOUNTER 2018-04-02 12:25 | Inpatient (IN) | payer MEDICARE ==
[~2018-04-02] VITALS: Ht 165.1 cm; Wt 147.4 kg
[~2018-04-02 12:25] MED LIST changes: -BENA40TA3 PO; +BENA40TA9 PO
[2018-04-02] MEDS ORDERED: ALBUTEROL (0.083%) 2.5MG/3ML NEB HHN STA (12:42)
[2018-04-02] MEDS ORDERED: METHYLPREDNISOLONE SOD SUCC 125 MG/2 ML VIAL IV STA (12:42)
[2018-04-02] MEDS ORDERED: IPRATROPIUM BROMIDE (0.02%) 0.5MG/2.5ML NEB HHN STA (12:42)
[2018-04-02] MEDS ORDERED: FUROSEMIDE 40MG/4ML VIAL IVP ONE (12:45)
[2018-04-02 13:31] LABS: BASOPHILS % 0.6 % (0.0-2.0); EOSINOPHILS % 9.2 % (0.0-5.0); HEMATOCRIT. 34.2 % (36.0-48.0); LYMPHOCYTES % 8.1 % (20.0-50.0); MEAN CORPUSCULAR HEMOGLOBIN 24.1 pg (28.0-32.0); MEAN CORPUSCULAR VOLUME 74.6 fL (81.0-99.0); MEAN PLATELET VOLUME 8.6 fl (7.4-10.4); MONOCYTES % 10.1 % (2.0-8.0); PLATELET 204 x1000/uL (130-400); RED BLOOD CELL COUNT 4.58 mill/uL (4.2-5.4); RED CELL DISTRIBUTION WIDTH 19.6 % (11.6-14.6)
[2018-04-02 13:39] LABS: INR 1.1; PROTHROMBIN TIME 10.7 sec (9.1-11.1)
[2018-04-02 13:42] LABS: CHLORIDE 109 mEq/L (98-107)
[2018-04-02 14:14] LABS: HEPATITIS B SURFACE ANTIGEN NEGATIVE
[2018-04-02 14:42] LABS: HEPATITIS A AB IGM NEGATIVE (NEGATIVE)
[2018-04-02 15:15] LABS: CLARITY URINE CLEAR (CLEAR); COLOR URINE YELLOW (YELLOW); KETONES URINE NEGATIVE (NEGATIVE); LEUKOCYTE ESTERASE URINE NEGATIVE (NEGATIVE); NITRITE URINE NEGATIVE (NEGATIVE); OCCULT BLOOD URINE 2+ (NEGATIVE); PH URINE 7.5 (4.5-8.0); PROTEIN URINE NEGATIVE (NEGATIVE); SPECIFIC GRAVITY URINE 1.006 (1.005-1.030); UROBILINOGEN URINE 0.2 E.U./dL (0.2-1.0)
[2018-04-02 16:22] LABS: *AMPHETAMINES SCREEN URINE NEGATIVE (NEGATIVE); *BARBITURATES SCREEN URINE NEGATIVE (NEGATIVE); *BENZODIAZEPINES SCREEN URINE NEGATIVE (NEGATIVE); *COCAINE SCREEN URINE NEGATIVE (NEGATIVE); CANNABINOID URINE SCREEN NEGATIVE (NEGATIVE); PHENCYCLIDINE URINE SCREEN NEGATIVE (NEGATIVE)
[2018-04-02 16:23] LABS: METHADONE URINE SCREEN NEGATIVE (NEGATIVE); OPIATES URINE SCREEN NEGATIVE (NEGATIVE)
[2018-04-02 16:58] VITALS: BP 170/80
[2018-04-02 17:01] VITALS: BP 170/80
[2018-04-02] MEDS ORDERED: FURO-151 MT (17:28)
[2018-04-02] MEDS ORDERED: IPRATROPIUM/ALBUTEROL 0.5-3(2.5)MG/3ML NEB HHN PRN (18:15)
[2018-04-02] MEDS ORDERED: ALPRAZOLAM 0.25 MG TABLET PO PRN (18:15)
[2018-04-02 19:06] LABS: BG BASE EXCESS 4.9 mmol/L (-2.0-2.0); BG CARBOXYHEMOGLOBIN 0.5 % (0.5-1.5); BG DEOXYHEMOGLOBIN 5.2 % (0.0-5.0); BG FRACTION INSPIRED OXYGEN 21; BG HCO3 ACT 29.6 mmol/L (22.0-26.0); BG METHEMOGLOBIN 0.3 % (0.0-1.5); BG OXYGEN SATURATION 94.8 % (92.0-98.5); BG PCO2 44.1 mmHg (35.0-45.0); BG PH 7.445 (7.350-7.450); BG PO2 72.8 mmHg (75.0-100.0); BG SAMPLE SITE RIGHT RADIAL; BG TOTAL HEMOGLOBIN 11.9 g/dL (12.0-18.0); BG VENT MODE ROOM AIR
[2018-04-02 19:58] VITALS: BP 150/71
[2018-04-02] MEDS: BENAZEPRIL 10MG TABLET PO SCH (21:00)
[2018-04-02] MEDS: APIXABAN 5 MG TABLET PO SCH (21:00)
[2018-04-02] MEDS ORDERED: PNEUMOCOCCAL 23-VAL P-SAC VAC 0.5 ML IM ONE (21:00)
[2018-04-02] MEDS: DOXAZOSIN MESYLATE 4MG TABLET PO SCH (21:51)
[2018-04-03] MEDS ORDERED: ALBUTEROL (0.083%) 2.5MG/3ML NEB HHN SCH
[2018-04-03] MEDS ORDERED: ALBUTEROL (0.083%) 2.5MG/3ML NEB HHN PRN
[2018-04-03] MEDS ORDERED: IPRATROPIUM BROMIDE (0.02%) 0.5MG/2.5ML NEB HHN SCH
[2018-04-03] MEDS ORDERED: BUDESONIDE 0.5MG/2ML NEB HHN SCH
[2018-04-03 00:32] VITALS: BP 155/72
[2018-04-03 04:47] VITALS: BP 153/71
[2018-04-03] MEDS: LEVOTHYROXINE SODIUM 75MCG TABLET PO SCH (06:22)
[2018-04-03 06:56] LABS: BASOPHILS % 0.6 % (0.0-2.0); EOSINOPHILS % 0.6 % (0.0-5.0); HEMATOCRIT. 36.2 % (36.0-48.0); HEMOGLOBIN. 11.7 g/dL (12.0-16.0); LYMPHOCYTES % 11.5 % (20.0-50.0); MEAN CORPUSCULAR HEMOGLOBIN 24.2 pg (28.0-32.0); MEAN CORPUSCULAR VOLUME 74.5 fL (81.0-99.0); MEAN PLATELET VOLUME 8.3 fl (7.4-10.4); MONOCYTES % 7.1 % (2.0-8.0); NEUTROPHILS % 80.2 % (40.0-76.0); PLATELET 239 x1000/uL (130-400); RED BLOOD CELL COUNT 4.86 mill/uL (4.2-5.4); RED CELL DISTRIBUTION WIDTH 19.6 % (11.6-14.6)
[2018-04-03 07:03] LABS: CHLORIDE 107 mEq/L (98-107)
[2018-04-03 07:19] LABS: T4 FREE 1.08 ng/dL (0.76-1.46)
[2018-04-03 08:36] VITALS: BP 174/72
[2018-04-03] MEDS ORDERED: FLUTICASONE/VILANTEROL 200-25 BLST.W.DEV ORI SCH (09:00)
[2018-04-03] MEDS ORDERED: UMECLIDINIUM BROMIDE 1 INH BLST.W.DEV IH SCH (09:00)
[2018-04-03] MEDS: BENAZEPRIL 10MG TABLET PO SCH (09:08)
[2018-04-03] MEDS: APIXABAN 5 MG TABLET PO SCH ×2 (09:08→18:06)
[2018-04-03] MEDS: FERROUS SULFATE 325MG TABLET PO SCH (09:08)
[2018-04-03] MEDS: NIFEDIPINE XL 60MG TAB PO SCH (09:08)
[2018-04-03] MEDS: FAMOTIDINE 20MG/2ML VIAL IV SCH (09:08)
[2018-04-03] MEDS: FUROSEMIDE 100MG/10ML VIAL IVP SCH ×2 (09:09→18:05)
[2018-04-03 12:10] VITALS: BP 141/55
[2018-04-03] MEDS: HYDROCODONE/ACETAMINOPHEN 10/325MG TABLET PO PRN ×2 (13:38→20:19)
[2018-04-03] MEDS: FLUTICASONE/VILANTEROL 200-25 BLST.W.DEV ORI SCH (13:39)
[2018-04-03] MEDS: UMECLIDINIUM BROMIDE 1 INH BLST.W.DEV IH SCH (13:40)
[2018-04-03 16:12] VITALS: BP 148/54
[2018-04-03] MEDS: DOXAZOSIN MESYLATE 4MG TABLET PO SCH (20:19)
[2018-04-03 20:41] VITALS: BP 136/57
[2018-04-04] VITALS: BP 126/59
[2018-04-04 04:34] VITALS: BP 142/63
[2018-04-04] MEDS: LEVOTHYROXINE SODIUM 75MCG TABLET PO SCH (06:28)
[2018-04-04 08:00] VITALS: BP 145/60
[2018-04-04] MEDS: FLUTICASONE/VILANTEROL 200-25 BLST.W.DEV ORI SCH ×2 (09:00→10:31)
[2018-04-04 09:44] LABS: HEMATOCRIT. 33.3 % (36.0-48.0); HEMOGLOBIN. 10.8 g/dL (12.0-16.0); MEAN CORPUSCULAR VOLUME 74.3 fL (81.0-99.0); MEAN PLATELET VOLUME 9.2 fl (7.4-10.4); PLATELET 208 x1000/uL (130-400); RED BLOOD CELL COUNT 4.48 mill/uL (4.2-5.4); RED CELL DISTRIBUTION WIDTH 19.8 % (11.6-14.6)
[2018-04-04 09:54] LABS: CHLORIDE 106 mEq/L (98-107)
[2018-04-04] MEDS: FAMOTIDINE 20MG/2ML VIAL IV SCH (10:28)
[2018-04-04] MEDS: FUROSEMIDE 100MG/10ML VIAL IVP SCH ×2 (10:28→17:00)
[2018-04-04] MEDS: HYDROCODONE/ACETAMINOPHEN 10/325MG TABLET PO PRN ×2 (10:29→14:43)
[2018-04-04] MEDS: APIXABAN 5 MG TABLET PO SCH ×2 (10:30→18:18)
[2018-04-04] MEDS: NIFEDIPINE XL 60MG TAB PO SCH (10:30)
[2018-04-04] MEDS: FERROUS SULFATE 325MG TABLET PO SCH (10:30)
[2018-04-04] MEDS: BENAZEPRIL 10MG TABLET PO SCH (10:30)
[2018-04-04] MEDS: UMECLIDINIUM BROMIDE 1 INH BLST.W.DEV IH SCH (10:31)
[2018-04-04 12:00] VITALS: BP 162/64
[2018-04-04 16:00] VITALS: BP 143/72
[2018-04-04 16:10] LABS: PLATELET ESTIMATE NORMAL
[2018-04-04 17:11] LABS: HIV SCREEN 4G Non Reactive (Non Reactive)
[2018-04-04 17:18] VITALS: BP 143/72
== END 2018-04-04 19:25 | disposition home health service (06) | DRG 191 ==
LOC: ER 12:25 → 6WST 14:10 → EDBEDREQ 14:15 → ENRESERV 15:18
PROVIDERS: ADMIT Internal Medicine Pulmonary Disease; ATTEND Internal Medicine Pulmonary Disease
DX: J44.1 Chronic obstructive pulmonary disease with (acute) exacerbation (principal); D68.59 Other primary thrombophilia; Z68.43 Body mass index [BMI] 50.0-59.9, adult; G47.30 Sleep apnea, unspecified; D32.0 Benign neoplasm of cerebral meninges; E78.5 Hyperlipidemia, unspecified; Z96.659 Presence of unspecified artificial knee joint; K21.9 Gastro-esophageal reflux disease without esophagitis; I49.3 Ventricular premature depolarization; I25.10 Atherosclerotic heart disease of native coronary artery without angina pectoris; E66.01 Morbid (severe) obesity due to excess calories; I11.0 Hypertensive heart disease with heart failure; I50.9 Heart failure, unspecified; E03.9 Hypothyroidism, unspecified; Z82.49 Family history of ischemic heart disease and other diseases of the circulatory system; Z87.891 Personal history of nicotine dependence; Z88.5 Allergy status to narcotic agent; Z79.899 Other long term (current) drug therapy; Z86.711 Personal history of pulmonary embolism; Z79.82 Long term (current) use of aspirin; Z86.73 Personal history of transient ischemic attack (TIA), and cerebral infarction without residual deficits; Z86.718 Personal history of other venous thrombosis and embolism; Z85.42 Personal history of malignant neoplasm of other parts of uterus; Z90.710 Acquired absence of both cervix and uterus; Z90.722 Acquired absence of ovaries, bilateral
CPT/HCPCS: 36415; 36600; 71045; 80048; 80305; 82375; 82805; 83605; 83735; 83880; 84100; 84439; 84443; 84484; 86705; 86709; 86803; 87340; 87389; 87804; 90732; 93005; 93970; 94640; 96372; 96374; 96375; 97162; 97166; 99285; J1940; J2930; J3490; J7611

== ENCOUNTER 2018-09-24 18:33 | Inpatient (IN) | payer MEDICARE ==
[~2018-09-24] VITALS: Ht 152.4 cm; Wt 166.9 kg
[~2018-09-24 18:33] MED LIST changes: -ASPI-1159 PO; +ASPI-1393 PO; +FURO-151 MT; -FURO80TA3 PO
[2018-09-24] MEDS ORDERED: ASPIRIN 81MG TABLET PO ONE (19:15)
[2018-09-24 19:43] LABS: BASOPHILS % 1.8 % (0.0-2.0); EOSINOPHILS % 1.2 % (0.0-5.0); HEMATOCRIT. 34.8 % (36.0-48.0); HEMOGLOBIN. 11.5 g/dL (12.0-16.0); LYMPHOCYTES % 14.2 % (20.0-50.0); MEAN CORPUSCULAR HEMOGLOBIN 23.9 pg (28.0-32.0); MEAN CORPUSCULAR VOLUME 72.3 fL (81.0-99.0); MEAN PLATELET VOLUME 8.6 fl (7.4-10.4); MONOCYTES % 7.1 % (2.0-8.0); NEUTROPHILS % 75.7 % (40.0-76.0); PLATELET 213 x1000/uL (130-400); RED BLOOD CELL COUNT 4.82 mill/uL (4.2-5.4); RED CELL DISTRIBUTION WIDTH 20.5 % (11.6-14.6)
[2018-09-24] MEDS: NITROGLYCERIN 0.4MG TABLET SL SL PRN (19:48)
[2018-09-24 19:49] LABS: CHLORIDE 111 mEq/L (98-107)
[2018-09-24 19:53] LABS: D-DIMER 0.5 mg/L FEU (<0.50); PROTHROMBIN TIME 10.5 sec (9.6-11.0)
[2018-09-24] MEDS ORDERED: NITROGLYCERIN 0.4MG TABLET SL SL PRN (20:30)
[2018-09-24] MEDS ORDERED: FUROSEMIDE 40MG TABLET PO NR (22:11)
[2018-09-24] MEDS ORDERED: FAMOTIDINE 20MG TABLET PO NR (22:12)
[2018-09-24] MEDS: FAMOTIDINE 20MG TABLET PO SCH (22:45)
[2018-09-24] MEDS: FUROSEMIDE 40MG TABLET PO SCH (22:45)
[2018-09-25] VITALS (7 sets, daily range): BP systolic 133–136; BP diastolic 44–64
[2018-09-25] MEDS: LEVOTHYROXINE SODIUM 75MCG TABLET PO SCH (06:36)
[2018-09-25] MEDS: NITROGLYCERIN OINT 1GM/INCH UDPKT TD SCH ×3 (06:37→20:59)
[2018-09-25 08:17] LABS: CHLORIDE 108 mEq/L (98-107)
[2018-09-25 08:25] LABS: HDL CHOLESTEROL 83 mg/dL (40-59)
[2018-09-25 08:29] LABS: LDL CHOLESTEROL 128 mg/dL (5-100)
[2018-09-25 08:30] LABS: CREATINE KINASE MB FRACTION < 1.0 ng/mL (0.5-3.6)
[2018-09-25] MEDS: BENAZEPRIL 10MG TABLET PO SCH (09:05)
[2018-09-25] MEDS: APIXABAN 5 MG TABLET PO SCH ×2 (09:06→16:56)
[2018-09-25] MEDS: NIFEDIPINE XL 60MG TAB PO SCH (09:06)
[2018-09-25] MEDS: FAMOTIDINE 20MG TABLET PO SCH (09:07)
[2018-09-25] MEDS: UMECLIDINIUM BROMIDE 1 INH BLST.W.DEV IH SCH (09:49)
[2018-09-25] MEDS: FLUTICASONE/VILANTEROL 200-25 BLST.W.DEV ORI SCH (09:49)
[2018-09-25] MEDS ORDERED: REGADENOSON 0.4 MG/5 ML IV NR (11:30)
[2018-09-25] MEDS: NITROGLYCERIN 0.4MG TABLET SL SL PRN (12:09)
[2018-09-25] MEDS ORDERED: ALPRAZOLAM 0.25 MG TABLET PO PRN (20:00)
[2018-09-25] MEDS: FUROSEMIDE 40MG TABLET PO SCH (20:58)
[2018-09-25] MEDS ORDERED: DOXAZOSIN MESYLATE 4MG TABLET PO SCH (21:00)
[2018-09-26] VITALS: BP 139/49
[2018-09-26 04:00] VITALS: BP 115/49
[2018-09-26] MEDS: NITROGLYCERIN OINT 1GM/INCH UDPKT TD SCH (05:27)
[2018-09-26 07:07] LABS: BASOPHILS % 0.9 % (0.0-2.0); EOSINOPHILS % 2.6 % (0.0-5.0); HEMATOCRIT. 34.3 % (36.0-48.0); HEMOGLOBIN. 11.2 g/dL (12.0-16.0); LYMPHOCYTES % 19.3 % (20.0-50.0); MEAN CORPUSCULAR HEMOGLOBIN 23.7 pg (28.0-32.0); MEAN CORPUSCULAR VOLUME 72.9 fL (81.0-99.0); MEAN PLATELET VOLUME 8.6 fl (7.4-10.4); MONOCYTES % 11.2 % (2.0-8.0); PLATELET 209 x1000/uL (130-400); RED BLOOD CELL COUNT 4.71 mill/uL (4.2-5.4); RED CELL DISTRIBUTION WIDTH 19.8 % (11.6-14.6)
[2018-09-26 07:38] LABS: CHLORIDE 107 mEq/L (98-107)
[2018-09-26 08:00] VITALS: BP 125/52
[2018-09-26] MEDS: BENAZEPRIL 10MG TABLET PO SCH (08:48)
[2018-09-26] MEDS: NIFEDIPINE XL 60MG TAB PO SCH (08:49)
[2018-09-26] MEDS: FUROSEMIDE 40MG TABLET PO SCH (08:49)
[2018-09-26] MEDS: FAMOTIDINE 20MG TABLET PO SCH (08:49)
[2018-09-26] MEDS: APIXABAN 5 MG TABLET PO SCH ×2 (08:56→17:04)
[2018-09-26] MEDS: LEVOTHYROXINE SODIUM 75MCG TABLET PO SCH (08:56)
[2018-09-26] MEDS ORDERED: REGADENOSON 0.4 MG/5 ML IV ONE (11:59)
[2018-09-26 13:49] VITALS: BP 130/60
[2018-09-26] MEDS: FLUTICASONE/VILANTEROL 200-25 BLST.W.DEV ORI SCH (14:22)
[2018-09-26] MEDS: UMECLIDINIUM BROMIDE 1 INH BLST.W.DEV IH SCH (14:22)
[2018-09-26 16:56] VITALS: BP 162/78
[2018-09-26] MEDS ORDERED: ATORVASTATIN CALCIUM 10MG TABLET PO SCH (21:00)
== END 2018-09-26 19:00 | disposition home or self-care (01) | DRG 313 ==
LOC: ER 18:33 → 7WST 20:05 → EDBEDREQTM 20:07 → EDBEDREQ 20:07 → ENRESERV 21:51
PROVIDERS: ADMIT Internal Medicine Critical Care Medicine; ATTEND Internal Medicine Critical Care Medicine
DX: R07.89 Other chest pain (principal); D68.59 Other primary thrombophilia; Z68.43 Body mass index [BMI] 50.0-59.9, adult; E66.01 Morbid (severe) obesity due to excess calories; G47.33 Obstructive sleep apnea (adult) (pediatric); M19.90 Unspecified osteoarthritis, unspecified site; E03.9 Hypothyroidism, unspecified; E78.5 Hyperlipidemia, unspecified; I11.0 Hypertensive heart disease with heart failure; I50.9 Heart failure, unspecified; J45.909 Unspecified asthma, uncomplicated; Z96.653 Presence of artificial knee joint, bilateral; E78.00 Pure hypercholesterolemia, unspecified; K21.9 Gastro-esophageal reflux disease without esophagitis; Z85.42 Personal history of malignant neoplasm of other parts of uterus; Z90.710 Acquired absence of both cervix and uterus; Z92.3 Personal history of irradiation; Z95.828 Presence of other vascular implants and grafts; Z86.711 Personal history of pulmonary embolism; Z79.01 Long term (current) use of anticoagulants; Z82.49 Family history of ischemic heart disease and other diseases of the circulatory system; Z79.899 Other long term (current) drug therapy; Z88.5 Allergy status to narcotic agent; Z92.21 Personal history of antineoplastic chemotherapy
CPT/HCPCS: 36415; 71045; 78452; 80048; 80061; 82553; 83880; 84443; 84484; 85379; 93005; 93017; 93306; 93970; 94660; 99285; A9500; J2785; J7040

== ENCOUNTER 2019-01-27 13:09 | Emergency (ER) | payer MEDICARE ==
[~2019-01-27] VITALS: Ht 165.1 cm; Wt 90.0 kg
[~2019-01-27 13:09] MED LIST changes: -ACET-2178 PO; +TOPUD PO
[2019-01-27 17:55] LABS: BASOPHILS % 0.5 % (0.0-2.0); EOSINOPHILS % 0.4 % (0.0-5.0); HEMATOCRIT. 35.8 % (36.0-48.0); HEMOGLOBIN. 11.9 g/dL (12.0-16.0); LYMPHOCYTES % 7.5 % (20.0-50.0); MEAN CORPUSCULAR VOLUME 75.2 fL (81.0-99.0); MEAN PLATELET VOLUME 8.9 fl (7.4-10.4); MONOCYTES % 8.5 % (2.0-8.0); NEUTROPHILS % 83.1 % (40.0-76.0); PLATELET 125 x1000/uL (130-400); RED BLOOD CELL COUNT 4.76 mill/uL (4.2-5.4); RED CELL DISTRIBUTION WIDTH 18.5 % (11.6-14.6)
[2019-01-27 17:58] LABS: INR 1.1; PROTHROMBIN TIME 11.4 sec (9.6-11.0)
[2019-01-27 18:07] LABS: CHLORIDE 107 mEq/L (98-107)
[2019-01-27] MEDS ORDERED: KETOROLAC 30MG/ML VIAL IV STA (18:15)
[2019-01-27] MEDS ORDERED: ONDANSETRON HCL 4MG/2ML INJ IV STA (18:15)
[2019-01-27] MEDS ORDERED: SODIUM CHLORIDE 0.9% 1,000 ML IV ONE (18:15)
[2019-01-27 18:34] LABS: CLARITY URINE TURBID (CLEAR); COLOR URINE DARK YELLOW (YELLOW); KETONES URINE TRACE (NEGATIVE); LEUKOCYTE ESTERASE URINE TRACE (NEGATIVE); NITRITE URINE NEGATIVE (NEGATIVE); OCCULT BLOOD URINE NEGATIVE (NEGATIVE); PROTEIN URINE 1+ (NEGATIVE); SPECIFIC GRAVITY URINE 1.033 (1.005-1.030)
[2019-01-27 19:34] VITALS: BP 145/62
== END 2019-01-27 19:46 | disposition home or self-care (01) ==
LOC: ER 13:09
DX: N28.9 Disorder of kidney and ureter, unspecified (principal); N30.90 Cystitis, unspecified without hematuria; J45.909 Unspecified asthma, uncomplicated; Z86.73 Personal history of transient ischemic attack (TIA), and cerebral infarction without residual deficits; Z79.82 Long term (current) use of aspirin; Z79.899 Other long term (current) drug therapy; Z88.6 Allergy status to analgesic agent; Z86.718 Personal history of other venous thrombosis and embolism
CPT/HCPCS: 36415; 74176; 80053; 81003; 83690; 85025; 85610; 96374; 96375; 99284; J1885; J2405; J7030

== ENCOUNTER 2019-02-01 13:11 | Emergency (ER) | payer MEDICARE ==
[~2019-02-01] VITALS: Ht 177.8 cm; Wt 181.0 kg
[2019-02-01] MEDS ORDERED: ONDANSETRON 4MG ODT PO ONE (14:00)
[2019-02-01 14:16] LABS: HEMATOCRIT. 31.3 % (36.0-48.0); HEMOGLOBIN. 10.5 g/dL (12.0-16.0); MEAN CORPUSCULAR HEMOGLOBIN 24.9 pg (28.0-32.0); MEAN CORPUSCULAR VOLUME 74.4 fL (81.0-99.0); MEAN PLATELET VOLUME 8.3 fl (7.4-10.4); PLATELET 196 x1000/uL (130-400); RED CELL DISTRIBUTION WIDTH 17.6 % (11.6-14.6)
[2019-02-01 15:02] LABS: PLATELET ESTIMATE NORMAL
[2019-02-01] MEDS ORDERED: HYDROCODONE/ACETAMINOPHEN 10/325MG TABLET PO ONE (17:15)
[2019-02-01 19:13] VITALS: BP 102/45
== END 2019-02-01 19:15 | disposition home or self-care (01) ==
LOC: ER 13:11
DX: I82.402 Acute embolism and thrombosis of unspecified deep veins of left lower extremity (principal); E66.01 Morbid (severe) obesity due to excess calories; R79.0 Abnormal level of blood mineral; J45.909 Unspecified asthma, uncomplicated; Z85.9 Personal history of malignant neoplasm, unspecified; Z88.6 Allergy status to analgesic agent; Z79.82 Long term (current) use of aspirin; Z86.73 Personal history of transient ischemic attack (TIA), and cerebral infarction without residual deficits; Z86.711 Personal history of pulmonary embolism; Z86.718 Personal history of other venous thrombosis and embolism; Z96.653 Presence of artificial knee joint, bilateral
CPT/HCPCS: 36415; 80048; 85025; 93970; 99284; Q0162